=== PATIENT | female | born 2000 | race Two or more races ===

== ENCOUNTER 2021-11-04 00:50 | Emergency (ER) | payer MEDICAID ==
[~2021-11-04] VITALS: Ht 165.1 cm; Wt 70.0 kg
[2021-11-04 00:52] VITALS: BP 142/72
== END 2021-11-04 02:10 | disposition left against medical advice (07) ==
LOC: ER 00:50
DX: F41.9 Anxiety disorder, unspecified (principal); R06.02 Shortness of breath; R07.9 Chest pain, unspecified; Z53.21 Procedure and treatment not carried out due to patient leaving prior to being seen by health care provider
CPT/HCPCS: 93005